=== PATIENT | male | born 1965 | race Caucasian/White ===

== ENCOUNTER → 2016-10-31 | Outpatient (CLI) | payer SELFPAY | END | disposition home or self-care (01) | LOC: PTH.S 21:10 | DX: F15.93 Other stimulant use, unspecified with withdrawal (principal) ==

== ENCOUNTER 2016-11-04 09:30 | Emergency (ER) | payer SELFPAY ==
--- NOTE | 2016-11-05 12:52 | ER ---
ADMIT: 11/04/2016 RM/LOC: ER [facility] MR#: [id number] [address] [place], [place] [address] JSOE MURGUIA [address] [place] [id number] Emergency Room Report SEX: M AGE: 51 : 1965 DATE: 11/04/2016 The patient is a 51-year-old, presents to emergency room for removal of sutures placed in his left upper cheek by Marely Enriquez a week ago. He is demanding to get them removed, pacing the floor. No physical examination. I went outside, looked at the sutures, they are due for removal. One of them already fell off. I used a suture removal kit and removed the other 4 sutures without any problems. The patient refused to wait for discharge instructions. DIAGNOSIS: Suture removal, left face. LORI Gibson / Mynor Navarro MD / ana JOB #: [id number] CC: Mynor Navarro MD, Attending Physician UNKNOWN, Family Physician
== END 2016-11-04 15:10 | disposition home or self-care (01) ==
LOC: ER 09:30
DX: S01.412D Laceration without foreign body of left cheek and temporomandibular area, subsequent encounter (principal); F17.210 Nicotine dependence, cigarettes, uncomplicated

== ENCOUNTER 2016-11-11 14:13 | Inpatient (IN) | payer OTHER ==
[~2016-11-11] VITALS: Ht 180.3 cm; Wt 96.6 kg
--- NOTE | ~2016-11-11 | TXPLANREV ---
"PATIENT: JOSE MURGUIA | | [facility] UNIT #: [id number] | [address] AGE/SEX: 51 M : 67 | [address] | [place] [phone] ADMIT/REG DATE: 11/11/16 | ROOM: [facility] LOC: ADTC | ADTC | Treatment Plan/Staffing Review Date: 12/02/16 Treatment plan was reviewed and determined appropriate as written: yes, client is to work on relapse packet and realized to call ex puts him on emotional rollercoaster so plans to not call her. He is calling sponsor. Treatment plan was reviewed and the following changes/addition/deletions are necessary: Discharge plans were reviewed and determined appropriate as previously documented: Client is to discharge 12/09/16, is being referred to [facility], can stay at [facility] until opening at [facility]. He is to call sponsor daily and meetings 4-7x/week. Until gets into [facility] can see Odessa Bender for aftercare starting on 12/14/16 at 3pm. Discharge plans were reviewed and determined to be as follows: Other pertinent issues discussed during this staffing review include: Client has made good progress, was very hooked into relationship, and now can see that talking to her puts him on emotional rollercoaster. He also sees how he wasn't honest at [facility] before as never told them that his GF drinks/uses and avoided telling them when he was hurting. He interviewed with [facility] and is on list, owned his dishonesty about GF. Staff Present: Jeniffer Weinberg, Odessa Bender, Elizabeth Cuello, London Laughlin, Nilda Herbert PRIMARY COUNSELOR: Sepideh Yu Client Signature Counselor Signature Date Time "
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
--- NOTE | ~2016-11-11 | RESCARESUM ---
PATIENT: JOSE MURGUIA | | [facility] UNIT #: [id number] | [address] AGE/SEX: 51 M : 67 | [address] | [place] [id number] ADMIT/REG DATE: 11/11/16 | ROOM: [facility] LOC: ADTC | ADTC | Summary of Residential Care Primary Counselor: Sepideh 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 Discharge Diagnosis: unchanged Goals Achieved: Client successfully completed residential treatment. He did well on Step 1 owning his powerlessness over alcohol/drugs. He did have phone contact with his daughter and girlfriend/ex, was obsessive on this girlfriend/ex to the point it interferred in his treatment, he was on emotional rollercoaster the first 2 weeks. His last 2 weeks he came to some acceptance that the relationship is toxic as she still uses/drinks, but still has difficulty letting go. Client can see that he kept secrets about his GF while at [facility], wasn't honest about her use cause new NA/counselors wouldn't support him living with her if she is using, plus he was hurting due to her hurtful behaviors and he kept it to himself. Client did do some Trauma work on his poor relationships with father/step-father. He does respond well to EMDR and it would benefit him to do this on his dependency in a toxic relationship. He did work on Relapse Prevention and could also do EMDR on triggers with his addiction aftercare. Client attended Family program alone but did have family session with his daughter on phone. Client did read Letting Go of Need to Control and found it very helpful. Needs to learn how to focus on self/sponsor/daughter instead of toxic relationship. Continued Obstacles to Sobriety/Relapse Issues: anger/hurt/stuffing feelings, not asking for help, lie or not tell whole story, boredom, not calling/opening up to sponsor/counselor, stress/worry, put up front "I'm fine", worry about others instead of self, lack of daily schedule, slack on meetings and this toxic addictive relationship he has with GF/ex. Family Issues Addressed: Client did attend the Family Educational program and did have phone session with daughter which seemed beneficial. x Individual Therapy x Group Therapy x Educational Series on Substance Abuse Parents/Significant Others Attended Family Program Acute Medical Problems During the Course of Treatment Transferred to Hospital During the Course of Treatment PATIENT: JOSE MURGUIA | | [facility] UNIT #: [id number] | [address] [place] [address] AGE/SEX: 51 M : 67 | [address] | [place] [address] ADMIT/REG DATE: 11/11/16 | ROOM: [facility] LOC: ADT | [facility] | Summary of Residential Care x Accepting of Substance Abuse Problem Non-accepting of Substance Abuse Problem Required Psychological or Psychiatric Consultation During the Course of Treatment Completed AA Step # 1 During This Level of Care Significant Incidences During Treatment: Clients emotions were like rollercoaster as he focussed/obsessed on his GF/ex and as he had calls with her. He did gain insight into how it is toxic for him and how he kept secrets when at [facility] before due to not wanting to leave this relationship. He still has difficulty letting go and states he wants to be friends with her. Reason For Discharge: x Completed Residential TX Goals and Ready For Next Level of Care Left Tx Against Medical Advice/Treatment Goals Not Complete Completed Residential Tx Goals But Refusing Continuing Care Recommendations Discharged Due to Noncompliance/Treatment Goals not Completed Discharged Earlier Than Planned Due to: Continuing Care Plan/Recommendations: Intensive Partial Care x Sponsor Partial Care x AA Meetings/NA Meetings Outpatient Co-dependency Services Therapeutic Community x [facility] [facility] Marriage Counseling Other Specific Continuing Care Plan: Client is being referred to the [facility] and he is to admit to their program upon discharge from our residential program. Client has a sponsor he has called and is to keep contact 4-7x/week, and is to attend AA/NA/BUSINESS STRATEGIST 4+x/week. PRIMARY COUNSELOR: Sepideh Yu
--- NOTE | ~2016-11-11 | INDIVTXPL2 ---
"PATIENT: JOSE MURGUIA | | [facility] UNIT #: [id number] | [address] AGE/SEX: 51 M : 67 | [address] | [place] [phone] ADMIT/REG DATE: 11/11/16 | ROOM: [facility] LOC: ADTC | ADTC | Individualized Treatment Plan DATE: 11/22/16 Problem Statement/Issue Identified:Client is experiencing family & significant other discord, client has guilt/grief and acts out controlling/anger which feeds his addiction. Goal: Client is to attend Family Educational program, read Letting Go of Control, and build better communication/making ammends to self and others. Objectives/Activities to achieve goal: 1. Client is to attend Family Education on 11/25 and 11/29 2pm-end. Participate in class. Due Date: 11/29/16 Complete: Incomplete: 2. Client is to write ammends letter to Self, daughter and Jesusita. Owning how he hurt self and others, and his plan of recovery. Share with counselor and family group. Due Date: 11/29 or Complete: Incomplete: 3. Client is to read Letting go of Need to Control to help understand clingy/control behavior he calls love. Share what he learns with counselor. Due Date: 12/06/16 Complete: Incomplete: Client Signature Date Counselor Signaure: Date Outcome/Measurement of Progress Towards Goal: Counselor Signature: Date "
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
--- NOTE | ~2016-11-11 | INDIVTXPL2 ---
"PATIENT: JOSE MURGUIA | | [facility] UNIT #: [id number] | [address] AGE/SEX: 51 M : 67 | [address] | [place] [phone] ADMIT/REG DATE: 11/11/16 | ROOM: [facility] LOC: ADTC | ADTC | Individualized Treatment Plan DATE: 11/18/16 Problem Statement/Issue Identified: Client continues to use alcohol & drugs despite ongoing negative consequences. Goal: Client is to learn about alcoholism/drug addiction, identifying consequences of his use and learn how to work a stronger AA/NA program. Objectives/Activities to achieve goal: 1. Client is to fill out Getting Started and Step 1 packets, identifying 10-15 ways his addiction went against his values and hurt loved ones. Client is to share with counselor and selected pages in group. Due Date: 11/30/16 Complete: Incomplete: 2. Client is to get and call sponsor 2x/week while in treatment. Share progress with counselor. Due Date: ongoing Complete: Incomplete: 3. Client is to attend and talk at AA/NA weekly, attend optional meetings if willing, read [phone] & [phone] and 83-84. Can bring up topic of How to forgive/love self at meeting or group. Client is to report progress to counselor. Due Date: ongoing Complete: Incomplete: Client Signature Date Counselor Signaure: Date Outcome/Measurement of Progress Towards Goal: Counselor Signature: Date "
--- NOTE | ~2016-11-11 | TXPLANREV ---
"PATIENT: JOSE MURGUIA | | [facility] UNIT #: [id number] | [address] AGE/SEX: 51 M : 67 | [address] | [place] [phone] ADMIT/REG DATE: 11/11/16 | ROOM: [facility] LOC: ADTC | ADTC | Treatment Plan/Staffing Review Date: 11/25/16 Treatment plan was reviewed and determined appropriate as written: yes, client is working on Letting Go of Need to Control booklet and feelings letters. Treatment plan was reviewed and the following changes/addition/deletions are necessary: Discharge plans were reviewed and determined appropriate as previously documented: Discharge plans were reviewed and determined to be as follows: Client is to discharge on 12/09/16, is being referred to the [facility] ([facility] if a waiting period). Also is to attend AA/NA/FLUME WORKER 3-7x/week and call sponsor daily. Other pertinent issues discussed during this staffing review include: Client asked to talk to many counselors/staff the first 2 weeks and often was thinking about leaving. He has stayed and suggested to be in or be out, show investement in staying in treatment. Client is showing improvement now, doctor did up his medication last week to help him with his depression and mind-racing. Staff Present: Jeniffer Weinberg, Nilda Herbert, Odessa Bender, Elizabeth Cuello, London Laughlin PRIMARY COUNSELOR: Sepideh Yu Client Signature Counselor Signature Date Time "
--- NOTE | ~2016-11-11 | INDIVTXPL2 ---
"PATIENT: JOSE MURGUIA | | [facility] UNIT #: [id number] | [address] AGE/SEX: 51 M : 67 | [address] | [place] [phone] ADMIT/REG DATE: 11/11/16 | ROOM: [facility] LOC: ADTC | ADTC | Individualized Treatment Plan DATE: 12/07/16 Problem Statement/Issue Identified: Client relapsed/returned to alcohol and drug usage after previous treatment attempts. Goal: Client is to learn about relapse prevention, identifying his top relapse triggers and how to cope with them to succeed in recovery. Objectives/Activities to achieve goal: 1. Client is to attend Relapse Prevention class every Tuesday 3-4pm and participate. See class notes. Due Date: 12/07/16 Complete: Incomplete: 2. Client is to fill out Relapse Prevention packet, identifying top 5-10 relapse triggers and how to cope with them. Share with counselor and share selected pages with group. Due Date: 12/09/16 Complete: Incomplete: 3. Client may do EMDR on triggers if time. See counselor notes. Due Date: 12/09/16 Complete: Incomplete: Client Signature Date Counselor Signaure: Date Outcome/Measurement of Progress Towards Goal: Counselor Signature: Date "
--- NOTE | 2016-11-11 15:25 | NUR ---
ADMISSION NOTE Client is a 51 y/o single male, referred to treatment by the [facility] and [facility] by [facility] staff. Client had been in the [facility] for 5 days. Client states that he has been homeless in [place]. Client states NKMA and brings no medications with him today. Client states DOC is meth, last used November 05 in the amount of 0.25 gram. Client also states occassional marijuana and alcohol use. Client is hoping for family group participation from his significant other and his daughter. Rights/Responsibilities: Copy given and explained to client. Signed and accepted by client. Client oriented to physical lay out of the ADTC unit, given Big Book and admission packet. A Herbie was assigned.
--- NOTE | 2016-11-11 16:35 | NUR ---
IS 1 hr/ Did meet with client and got acquainted, he shared how he fears he has lost everything. He lost his good paying job, he left the [facility] after 6 months even though they suggested he stay. He moved in with GF out of town even though he had no drivers license and stopped going to meetings. He talked with GF about getting 6 pack and did, relapsed back into meth within short time and she kicked him out. He did get back to tx and was only out there in his addiction 2 months, he said it progressed quickly. He was praised for coming back now instead of staying out there using, he did say [facility] counselor said they likely will take him back. Counselor pointed at this and tried to encourage him with this and that he must of been doing well there that they would say that. He also was pointed to how most everyone in AA/NA have similar story of how much they lost, or of relapses and they offer him hope that if he works program fully this time he can do better than before. Client and counselor went over his Initial Treatment plan. He is to fill out GS packet but isn't done with the admission paperwork yet. He has already met with the doctor and nurse. He shared about his great sponsor so counselor said get the # and will let him call sponsor and have him as visitor this weekend. Client was oriented to counseling.
--- NOTE | 2016-11-11 19:33 | NUR ---
counselor note: Client came to talk to me as he is feeling very down on himself. He feels he has lost everything. He said he felt suicidal before coming here and they took him to [facility] but he is not feeling suicidal now. I told him he will feel better as time goes on. He was going to see if his counselor was out of group yet.
--- NOTE | 2016-11-11 20:00 | NUR ---
IS .25 hr/ Client did stop by this counselors office, saying he isn't done with paperwork yet but did get # of sponsor, let him call the sponsor and did get to talk to him, told sponsor he relapsed and is in tx. That sponsor can come and visit him this weekend. Client thanked counselor, looked wore-out, and counselor said the first day is wearing but it will get better each day. He agreed and thanked counselor for letting him make a call. He did say he has talked to 2 other counselors today for support (he knows the staff from his last treatment here 8 months ago).
--- NOTE | 2016-11-11 21:07 | NUR ---
FAMILY CONTACT- attempted to call both #'s client gave for his S.O. and daughter, neither answered, did leave message for S.O. to call back
--- NOTE | 2016-11-11 23:58 | NUR ---
Tech Note: Client attended Guided Meditation and A.A.Meeting. SE: Getting into treatment
--- NOTE | 2016-11-12 04:27 | NUR ---
Eduction: 1 Hour. Client attended "Unresolved Anger" video & discussion presented by staff.
--- NOTE | 2016-11-12 11:30 | NUR ---
GROUP 1.5 HR/ 11:1 Clients all reviewed rules and heard new member share about himself. This client was attentive and gave some feedback. He states he doesn't want to be like his dad who was alcoholic, did forgive him, but has unfinished business/unanswered questions. He was ORIENTED TO GROUP RULES and shared alot about himself, had over 6 months sober as was at [facility] 6 months but relapsed shortly after due to not going to meetings, had put off getting sponsor til last 3 weeks of being at [facility]. He shared lost everything, got bad that it was affecting job, but worst was missed daughters wedding.
--- NOTE | 2016-11-12 13:00 | NUR ---
PEER REVIEWS 1.5 HRS: Clt participated in peer review process and was able to give open and honest feedback to those receiving a review.
--- NOTE | 2016-11-12 16:30 | NUR ---
Tech Note: Client participated in group walk for exercise and watched "Recovery Issues Part 3" for afternoon video. Client is working on Getting Started.
--- NOTE | 2016-11-12 22:45 | NUR ---
TECH NOTE: Client participated in reading guidelines and watched tv/movies. attended offsite optional AA meeting SE: all day
--- NOTE | 2016-11-13 04:09 | NUR ---
Bed Note: Clt lay motionless in bed with eyes closed showing no distress at all bed checks.
--- NOTE | 2016-11-13 16:01 | NUR ---
Tech Note: Client attended NA Panel and is working on Feelings Letters.
--- NOTE | 2016-11-13 16:43 | NUR ---
Tech Note: Client has come by tech station several times, on this day, asking my opinion of "how bad he has messed up with his girlfriend". Clt wrote some of his feelings down in a letter and asked to share with techs. Also overheard clt sharing the letter with a female peer (JamesA.). Some time later in day clt stated that he wanted to leave. He spoke to the health information manager counselor (Varun) and to tech (Ananda) after call. As of now aubrey is staying and will try to call his sponsor and possibly arrange a visit for Tuesday. Client agreed to talk to peers about feelings and staff will help. He will start praying again and try to get through the next few days by taking it 5 minutes at a time if that's what it takes.
--- NOTE | 2016-11-13 20:14 | NUR ---
Tech note: Cldeshawn played a game for recreation and attended offsite AA mtg. Clt was late for rec having threatened to leave tx. Clt was angry saying why should he stay in tx and said he didn't want to talk with anybody. He had a female peer attempt calling s/o for him. When techs found out about this clts redirected. Clt talked with male peer and apoligized to tech after comm mtg in which peers complimented him for staying in tx. On- Call counselor informed. SE was supper
--- NOTE | 2016-11-14 04:35 | NUR ---
Bed Note: Clt lay motionless in bed with eyes closed showing no distress at all bed checks.
--- NOTE | 2016-11-14 15:45 | NUR ---
Tech Note: Client participated in Big Book Study. Client stated that he is working on, "How to Get Started in Treatment."
--- NOTE | 2016-11-14 22:39 | NUR ---
Tech Note: Clt attended AA panel, optional DENTAL LABORATORY SUPERVISOR mtg and watched movies. Clt stated having a much better day today. SE was sponsor visit, DENTAL LABORATORY SUPERVISOR mtg and AA panel
--- NOTE | 2016-11-15 04:37 | NUR ---
Bed Note: Clt lay motionless in bed with eyes closed showing no distress at all bed checks. Clt came out of room at 2330 hrs for a meditation CD.
--- NOTE | 2016-11-15 10:14 | NUR ---
Tech notes: Client is working on Getting started
--- NOTE | 2016-11-15 12:00 | NUR ---
Group 1.5 hr/10:1 Clients heard peers share packets, this client was attentive.
--- NOTE | 2016-11-15 13:30 | NUR ---
Education: Client attended education by Shalonda on Infection prevention.
--- NOTE | 2016-11-15 18:11 | NUR ---
Education: 1 Hour. Client attended "Adult Children of Alcoholics" lecture presented by staff.
--- NOTE | 2016-11-15 23:19 | NUR ---
tech note: Client played a game for recreation & attended onsite NA meeting. Client told tech that a female peer is "too clingy" and mentioned she wants to be "friends with benefits" after they leave treatment. Client was tearful in the client meeting and continued talking for quite some time. SE: NA meeting.
--- NOTE | 2016-11-16 04:31 | NUR ---
BED NOTE: Client was in bed, motionless with eyes closed all three bed checks.
--- NOTE | 2016-11-16 11:29 | NUR ---
A.M. 1.5 hr res group/ratio 1:10/ Assignments shared were a how to get started and a letter to self. Discussion focused on resenting self, forgivness, feeling afraid and out of place and believing in self. This client participated and shared his how to get started. He has resentments towards self for not being in his kids life and now 2 are in penitentiary. He heard he needs to forgive self.
--- NOTE | 2016-11-16 16:00 | NUR ---
Relapse Prevention, 1.0 hours, Client attended and actively participated in relapse prevention education which focused on internal and external triggers.
--- NOTE | 2016-11-16 16:35 | NUR ---
Tech Note: Client participated in Nutritional Services presentation and is working on the Big Book.
--- NOTE | 2016-11-16 17:00 | NUR ---
IS 1 hr/ Counselor met with client who had complained of stomach problems. As we talked he is obsession on his S.O. who broke up with him, he wants to get her back, he asked to share letter he wrote, but first told how depressed he is, doesn't know if life is worth this. Counselor questioned him on being suicidal, he has struggled with thoughts but no plan, he just is full of hurt and pain, hasn't hurt this bad before he stated. Client was questioned of nif suicidal and he said no, asked if wanted to go to [facility] to get stabilized on meds for depression and he said he hates it there, he would leave if we take him there. HE stated you aren't sending me to [facility] and counselor said if he needs help because is suicidal they would help him and get him back here after stablized. He said he just wants us to help him with it, a better medication or something. So counselor had him fill out Self-Care form on his bad stomach and his depressed feelings for doctor staffing. Counselor asked him to share what was good his last 6 months clean/sober that he had and he shared several things. Did do EMDR with him as he shared good memories from being at [facility], how he did feel good about his life then.He did state this helped him feel better, then he shared letter. He appeared to write last 1/2 in broken incomplete sentences so suggested he wait a week and to add more to it, he admits he scared her but left that out of letter and needs to own it. He was given ideas of how to change his obsessive thoughts to focus on other things he can feel good about, stay in today, focus on gratitudes/strengths and is to write them down-20 of each to help change his negative focus. When asked if he prays he said he believes and he prays, later he yelled that God caused bad things to happen, loved ones to , etc and counselor confronted that thinking as a negative concept of God, and bad things happen to everyone in this world, that is life. Client asked about how to do list so gave him some ideas. Counselor did talk with nurse following session that client may need doctor to help client with intense depression.
--- NOTE | 2016-11-16 22:42 | NUR ---
Education: 1 hour lecture given by counselor on co-dependency
--- NOTE | 2016-11-16 22:48 | NUR ---
Aircuity note: clients played [employer] for rec, participated in guided meditation and attended AA meeting. client came to tech station before AA meeting and wanted to know if he was going to see doctor because he had sour stomach. He wanted to go to his room but we told him the rules for going to your room and he started cussing. He wasn't happy with his counselor and wanted to change. We explained to him we can only give him PRN's and he didn't have symptoms to go to room. He went to meeting and later apologized to tech for getting angry. He was told his doctor would be here in a.m. SE:TONEY
--- NOTE | 2016-11-17 04:35 | NUR ---
bed note: client was in bed with eyes closed and motionless at all bed checks.
--- NOTE | 2016-11-17 09:51 | NUR ---
Tech notes: Client is working on [employer]
--- NOTE | 2016-11-17 09:58 | NUR ---
Recovery 101 1 hr/ Clients all were asked to share what they worked on in treatment or past treatments that really helped them and/or their experience with working an AA/NA program of recovery-what went well. This client was attentive and is learning how to embrace the good, scared to not have chaos, and his last treatment and [facility] did learn how to feel feelings.
--- NOTE | 2016-11-17 11:30 | NUR ---
GROUP 1.5 HRS. 1:12 Clients participated in orienting new peer to purpose and rules of group. Discussion included healthy coping skills to deal with stress and feelings after this client asked for help as he is so emotional. He was given feedback about obsessing on girlfriend and past behaviors as opposed to looking at what he needs to work on today. He was encouraged to journal feelings and process with primary counselor. Peer processed from his step 1 assignment identifying how he betrayed his values in his addiction.
--- NOTE | 2016-11-17 13:14 | NUR ---
Education note: Client attended educational speaker Madhu Judge
--- NOTE | 2016-11-17 17:30 | NUR ---
SPIRITUAL EDUCATION 1 HR. Today we used music to invoke discussion, symbolize how it can be either positive spirituality or negative spirituality, and discussed the feelings. We used one song that depicted addiction, one that talked about recovery, and since we are close to Mother's Day, one that depicted addiction in parents and forgiveness.
--- NOTE | 2016-11-17 18:17 | NUR ---
Education: 1 Hour. Client attended "Boudaries" lecture given by staff.
--- NOTE | 2016-11-17 22:53 | NUR ---
Tech Note: Client played a game for rec, and attended The on unit N.A.Meeting. SE: Walk
--- NOTE | 2016-11-18 04:29 | NUR ---
Bed Note: Client was in bed with eyes closed and motionless at all bed checks.
--- NOTE | 2016-11-18 12:40 | NUR ---
Group 1.5 Hr Ratio 1:9/Topics today were a collage, two step ones, a getting startred and feelings letters. Client shared how he could relate to what clients were sharing from assignments and issues.
--- NOTE | 2016-11-18 14:30 | NUR ---
FAMILY SESSION .5 HR/ dID CALL his daughter and did talk to her, with client present. She does like him when he is clean/sober, did have good dominga, did share how hurt she was that dad wasn't there for her wedding and he owned his feeling so sad, hurt and ashamed for doing that. She did say she would come to Tuesday family day, then found out after hung up that it would be that evening. She did come to it 8 months ago when he was here. Did encourage her to make a also. She seemed glad to come for at least one, wasn't sure she could do both.
--- NOTE | 2016-11-18 15:00 | NUR ---
IS .5 hr/ Client and counselor went over his GS, he is to do step 1 now, starting with page 11 as needs to write feelings letter by Tuesday to his daughter. Client was tearful still about his S.O. and wondering if he should call on how he is going to get his stuff, suggested he write a brief letter to say this. Plan for his daughter to come to family day.
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
--- NOTE | 2016-11-18 15:57 | NUR ---
step education 1 hr/ Focus was on step 3 of the 12 steps Made a decision to turn our will and lives over to God. Each person were given questions to answer on paper and then to share and discuss. This client participated.
--- NOTE | 2016-11-18 18:15 | NUR ---
Education 1HR: Clt watched video called "Predator part 1" by Cirilo Liz with staff present.
--- NOTE | 2016-11-18 23:04 | NUR ---
Tech Note: Client took a walk for rec and attended the A.A.Meeting. SE: Talk with Daughter
--- NOTE | 2016-11-18 23:22 | NUR ---
1:00 pm. Education Note: Client watched video "Inside the Addictive Personality"
--- NOTE | 2016-11-19 04:07 | NUR ---
Bed Note: Client was in bed and motionless at all bed checks.
--- NOTE | 2016-11-19 11:30 | NUR ---
Group 1.5 hr/ 11:1 Clients all involved in discussions about addiction and recovery. THis client was very involved and gave good feedback, related well.
--- NOTE | 2016-11-19 14:31 | NUR ---
PEER REVIEWS 1.5 HRS: Clt participated in peer review process and was able to give open and honest feedback to those receiving a review.
--- NOTE | 2016-11-19 15:38 | NUR ---
Tech Note: Client participated in group walk and watched "Marijuana" by Cirilo Liz. Assignment being worked on is Step 1 and Feelings Letters.
--- NOTE | 2016-11-19 23:11 | NUR ---
Tech note: Client was first on the phone list, when his time was up he was asked to get off several times and he ingnored staff. He blew up after he hung up. saying he was leaving, blaming staff. He packed his things and called his ex several times, he decided to stay.
--- NOTE | 2016-11-20 03:58 | NUR ---
Bed note: Client was in bed with eyes closed and no distress at all bed checks
--- NOTE | 2016-11-20 16:46 | NUR ---
Tech Note: Client went to A.A.Meeting at [address]. Client is working on Step 1 and FL's
--- NOTE | 2016-11-20 21:56 | NUR ---
Tech note: Client's were just starting to grill around 6pm so we did not have rec this evening. Client walked to an offsite AA meeting, played games and watched movies. He had a posative attitude all evening. SE; family
--- NOTE | 2016-11-21 04:44 | NUR ---
tech note: client was motionless in no distress at all bed checks.
--- NOTE | 2016-11-21 17:24 | NUR ---
Tech Note: Client participated in Big Book study. Client attended synagogue. Client stated that he is working on Step One and writing feelings letters. Client spoke to his former significant other on the phone.
--- NOTE | 2016-11-21 23:19 | NUR ---
tech note: Client participated in community clean & attended SCREEN EXAMINER meeting. Client was redirected by tech when he didn't end his phone call when his time was up. SE: [facility].
--- NOTE | 2016-11-22 04:23 | NUR ---
tech note: client was motionless in no distress at all bed checks.
--- NOTE | 2016-11-22 11:30 | NUR ---
Experiential Group 1.5 hr/ Clients all participated in looking at family dynamics and feelings through sculpturing and participated with feedback, relating and/or role-playing. This client was attentive and quiet.
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
--- NOTE | 2016-11-22 17:34 | NUR ---
Tech Note: Client went for an outdoor walk in the afternoon. Client stated that he is working on Step One and writing feelings letters.
--- NOTE | 2016-11-22 20:46 | NUR ---
Education 1 HR: Clt listened to lecture given by counselor on communication.
--- NOTE | 2016-11-22 23:03 | NUR ---
Client played a game for rec and attended on site N.A.Meeting SE: Meeting with counselor
--- NOTE | 2016-11-23 04:57 | NUR ---
Bed Note: Client was in bed and motionless at all bed checks
--- NOTE | 2016-11-23 12:30 | NUR ---
A.M. 1.5 hr group/ Assignments shared were step 1, feelings letters, timeline to music, and this client asked for help on how to forgive self. He got teary eyed as he listened to feedback. He recieved feedback from peers who seemed sincere in caring.
--- NOTE | 2016-11-23 15:09 | NUR ---
Tech Note: Client joined group for afternoon walk, listened to speaker from [facility] and is working on Step 1, and Feelings Letter to self.
--- NOTE | 2016-11-23 15:52 | NUR ---
Tech Note: Client attended Relapse Prevention education with Nilda.
--- NOTE | 2016-11-23 19:50 | NUR ---
Education: 1 hour lecture on STD/AID/HIV giortega by [facility].
--- NOTE | 2016-11-23 22:24 | NUR ---
Tech note : Client worked on My-Apps and get well cards. Client participated in guided meditation and went to an onsite AA meeting. Client told tech's he had alot of anxiety and stress going on. Staff told him to talkt to his counselor about it.
--- NOTE | 2016-11-24 04:14 | NUR ---
Bed note: Client was in bed with eyes closed and no distress at all bed checks. He was up at 3:30 and stated that he could not go back to sleep so he asked for cd player and [employer] music
--- NOTE | 2016-11-24 11:11 | NUR ---
Tech Note: Client is working on Letting Go of Need to Control and Amends to Self.
--- NOTE | 2016-11-24 12:10 | NUR ---
AM GROUP 13:07/11.5 HR: Client and peers heard multiple clients process assignments and issues. Most did offer feedback, asked clarifying questions and shared from their own experiences. This client did share and process PAGES 10 & 11 from his Step One. He did a good job with these in that he provided good examples of values compromised and people he has hurt. Client does get a little over-dramatic at times, but many related to his examples.
--- NOTE | 2016-11-24 13:18 | NUR ---
Tech Note: Client walked in the hallways for afternoon exercise.
--- NOTE | 2016-11-24 13:22 | NUR ---
Education One Hour: Client heard from members of the recovery community, who shared their experience, strength and hope.
--- NOTE | 2016-11-24 17:27 | NUR ---
SPIRITUAL EDUCATION 1 HR. Topics today were orienting newcomers and then broke into groups and did presentations on their sections from TOWARDS SPIRITUALITY.
--- NOTE | 2016-11-24 18:45 | NUR ---
Education: 1 hour lecture given by counselor on "Disease concept".
--- NOTE | 2016-11-24 22:20 | NUR ---
Tech note: Client played catch phrase for rec and attended an onsite NA meeting. He was upset this evening and went and talked with a counselor so he was late to rec. SE: MARIELOS
--- NOTE | 2016-11-25 04:59 | NUR ---
Bed note: Client was in bed with eyes closed and no distress at all bed checks.
--- NOTE | 2016-11-25 10:38 | NUR ---
Tech Note; Client participated in light stretching for morning exercise. Client stated that he is working on making amends to his daughter.
--- NOTE | 2016-11-25 11:30 | NUR ---
AM GRP 1.5 HRS, Ratio 1:12/ Clt participated in grp discussion on various topics, including having fun in recovery, how addiction hurts everyone around them, and what to do just to stay in recovery. This clt participated, and stated he knows for his recovery, he needs to let go of some past issues from his childhood and even adult pino, when his dad .
--- NOTE | 2016-11-25 15:55 | NUR ---
Step Education 1 hr/Focus was on step 4 making a searching and fearless moral inventory of ourselves. Handed out some questions each person answered on paper and then we discussed. This person participated and shared an old belief he has is that men dont cry.
--- NOTE | 2016-11-25 16:19 | NUR ---
Education 1 Hour: Client heard from two members of the recovery community, who shared their experience strength and hope.
--- NOTE | 2016-11-25 20:23 | NUR ---
Education: 1 Hour. Client attended Karl Knowles "Unhealthy Families" video.
--- NOTE | 2016-11-25 20:59 | NUR ---
IS 1 hr/ Client and counselor went over letter to child, discussed his letting go of relationship better and he read the Letting Go of Need to Control and owned how he could be controlling/scarey-threatening/manipulative when coming down. He did EMDR relaxation technique with counselor and is to practice it. He said he didn't sleep well night before last and thought sleep med may need to be increased but counselor did EMDR and client is to practice this. Also was told no one new in recovery has perfect sleep habits, takes months and sometimes years.
--- NOTE | 2016-11-25 22:57 | NUR ---
Client went on a walk for rec, participated in guided meditation, and attended the on unit A.A.Meeting. SE:A.A./Counselor session
--- NOTE | 2016-11-26 05:34 | NUR ---
tech note: client was motionless in no distress at all bed checks.
--- NOTE | 2016-11-26 11:48 | NUR ---
Group 1.5 Hr Ratio 1:11/Topics today were two Getting started packets, feelings letters and a letter to self. Client shared a letter he wrote to his self and thinks he has more control issues than he looked at in the past.
--- NOTE | 2016-11-26 14:42 | NUR ---
Tech Note: Client joined our group walk for exercise. Watched video titled "Sound of Silence" and is working on Anger Management and Feelings Letters.
--- NOTE | 2016-11-26 15:45 | NUR ---
PEER REVIEWS 1.25 HRS: Clt participated in peer reviews and took a risk to give open and honest feedback to those receiving a review.
--- NOTE | 2016-11-26 20:27 | NUR ---
TECH NOTE: Client participated in reading of guidelines, watched TV/movies and attended optional offsite AA meeting SE: receiving items from friend
--- NOTE | 2016-11-27 04:31 | NUR ---
BED NOTE: Client was in bed, motionless with eyes closed all bed checks.
--- NOTE | 2016-11-27 16:15 | NUR ---
Tech Note: Client is working on Feelings Letters and Anger Management.
--- NOTE | 2016-11-27 20:20 | NUR ---
Tech note: Clt played a game for recreation and attended offsite AA mtg. clt watched tv and used phone. SE was NA panel.
--- NOTE | 2016-11-28 04:24 | NUR ---
BED NOTE: Client was in bed motionless with eyes closed all three bed checks.
--- NOTE | 2016-11-28 15:44 | NUR ---
Tech Note: Client participated in Big Book study. Client stated that he is working on writing feelings letters. Client attended scientology and received a visitor.
--- NOTE | 2016-11-28 22:57 | NUR ---
Tech Note: Client attended the A.A.Panel with Jitendra Damon Client also attended the INDUSTRIAL SAFETY AND HEALTH TECHNICIAN meeting SE: Visitation
--- NOTE | 2016-11-29 04:36 | NUR ---
Bed Note: Client was laying in bed and motionless at all bed checks.
--- NOTE | 2016-11-29 09:43 | NUR ---
Tech note: Client is working on Fl's.
--- NOTE | 2016-11-29 11:30 | NUR ---
PEER REVIEW 1.5 hr/ Clients had 4 peer reviews and this client gave good feedback.
--- NOTE | 2016-11-29 12:54 | NUR ---
Education Note: Clients attended speaker for education Kit J.
--- NOTE | 2016-11-29 18:18 | NUR ---
Education: 1 Hour. Client attended "Feelings" lecture presented by staff.
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
--- NOTE | 2016-11-29 23:06 | NUR ---
tech note: client attended Family Session. Client was redirected to watch his remarks before the client meeting started. SE: Family.
--- NOTE | 2016-11-30 04:45 | NUR ---
tech note: client was motionless in no distress at all bed checks.
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
--- NOTE | 2016-11-30 15:50 | NUR ---
Relapse Prevention, 1.0 hours, Client attended and actively participated in relapse prevention education which focused on compulsive behaviors and relapse.
--- NOTE | 2016-11-30 16:07 | NUR ---
Tech Note: Client watched Part 2 of Predator by Cirilo Liz and had Relapse Prevention for 3:00 education. Assignment being worked on: Feelings Letters.
--- NOTE | 2016-11-30 16:22 | NUR ---
Education Note: Client attended Relapse Prevention presented by counselor Judith.
--- NOTE | 2016-11-30 20:17 | NUR ---
Education: 1 hour lecture given by counselor on relapse.
--- NOTE | 2016-11-30 20:23 | NUR ---
tech note: Client went for walk for rec, participated in guided meditation and attended AA meeting
--- NOTE | 2016-11-30 23:29 | NUR ---
Tech Note: Client went on a walk for rec and attended the on unit A.A.Meeting. Client participated in Guided Meditation at 1930. SE: [facility]
--- NOTE | 2016-12-01 04:54 | NUR ---
Bed note: client was in bed with eyes closed and no distress at all bed checks.
--- NOTE | 2016-12-01 10:18 | NUR ---
Tech notes: Client is working on Fl's and mtg with meg
--- NOTE | 2016-12-01 13:46 | NUR ---
Educational note: Client watched a video for education.
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
--- NOTE | 2016-12-01 15:48 | NUR ---
FAMILY SESSION ON PHONE .5 HR/ Client and counselor called clients daughter, he did share his feelings letter with her over the phone and shed tears. Did discuss his aftercare with her and explained what was missing his last time at [facility], how his plan and insights is different now. She was very loving and positive, agreed with him that his addiction was hurtful. They did mention that the brother has resentments as hates liers and so maybe with time and client making ammends this will open up door with him.
--- NOTE | 2016-12-01 17:19 | NUR ---
SPIRITUaL EDUCATION 1 HR. Clients were oriented to the group and learned difference between spirituality and gnosticist. We addressed GRATITUDE today with discussion, worksheet and activity.
--- NOTE | 2016-12-01 18:22 | NUR ---
Education: 1 Hour. Client attended "Self Esteem" lecture presented by staff.
--- NOTE | 2016-12-01 23:12 | NUR ---
tech note: client went on a walk for recreation & attended the onsite NA meeting. SE: EMDR & meeting with his counselor.
--- NOTE | 2016-12-02 05:09 | NUR ---
Bed Note: Clt lay motionless in bed with eyes closed showing no distress at all bed checks.
--- NOTE | 2016-12-02 11:10 | NUR ---
Tech Note: Client participated in Spiritual Enrichment. Client stated that he is working on, "Relapse Prevention."
--- NOTE | 2016-12-02 11:42 | NUR ---
Group 1.5 Hr Ratio 1:10/Topics today were two step ones, two Gettings started packets andtwo feelings letters. Client shared a feelings letter to his daughter and did not have a lot of feelings in the letter. Not sure if client has the desire to do what he needs to do to have a long lasting relationship with her.
--- NOTE | 2016-12-02 16:48 | NUR ---
FAMILY EDUCATION 3 HRS. Client attended alone and took part in the discussion on the disease concept. Client shared consequences of his addiction.
--- NOTE | 2016-12-02 19:14 | NUR ---
Education 1 Hour: Client heard a presentation on marijuana.
--- NOTE | 2016-12-02 22:10 | NUR ---
Education 1 HR: Clt watched video by Eleni "Devi Hernandez" with staff present.
--- NOTE | 2016-12-02 22:31 | NUR ---
Tech Note: Clt walked for recreation, attended GM and onsite AA mtg. SE was AA
--- NOTE | 2016-12-03 04:44 | NUR ---
Bed Note: Clt lay motionless in bed with eyes closed showing no distress at all bed checks.
--- NOTE | 2016-12-03 11:30 | NUR ---
Group 1.5 hr/ 11:1 Clients all heard peers share in discussion about when is it addiction with loss of control or being a "functional addict" as peer asked questions. Also they introduced self to newcomer. This client was attentive and gave great feedback.
--- NOTE | 2016-12-03 16:12 | NUR ---
PEER REVIEWS 1.25 HRS: Clt participated in peer reviews and took a risk to give open and honest feedback to those receiving a review. Client also had a peer review done and some of what he heard was that he needs to open up more, has control issues, is angry and defensive, snaps when he does not get his way, holds a lot of shame, needs to fogive himself, needs to take suggestions and apply them, and wants to be loved but has a wall up. Client shared he felt ashamed and hurt.
--- NOTE | 2016-12-03 16:12 | NUR ---
Tech Note: Client listened to speaker Hussein Lee and is working on Relapse Prevention.
--- NOTE | 2016-12-03 20:41 | NUR ---
Tech note: client watched TV and movies. Walked to optional offiste AA meeting. SE:peer review
--- NOTE | 2016-12-04 04:56 | NUR ---
Bed note: Client was in bed with eyes closed and no distress at all bed checks.
--- NOTE | 2016-12-04 16:48 | NUR ---
Tech Note: Client attended the A.A.Meeting at [address] [place] [address] and is working on Relapse Prevention
--- NOTE | 2016-12-04 22:47 | NUR ---
Tech note: Client walked around the park a few times for rec. Client walked to an off site AA meeting. SE: Talking with daughter
--- NOTE | 2016-12-05 05:00 | NUR ---
Bed note: client was in bed with eyes closed and no distress at all bed checks.
--- NOTE | 2016-12-05 15:28 | NUR ---
TECH NOTE: Client participated in big book study, attended latter-day, completed chores and watched tv/movies. Had visitors
--- NOTE | 2016-12-05 23:19 | NUR ---
tech note: Client participated in Community Clean. Client talked on the phone,played cards & watched tv. SE: visits & phone.
--- NOTE | 2016-12-06 04:44 | NUR ---
Bed note: client was in bed with eyes closed and no distress at all bed checks.
--- NOTE | 2016-12-06 14:57 | NUR ---
Tech note: Client is working on Addiction mamagment
--- NOTE | 2016-12-06 22:53 | NUR ---
Tech Note: Clt walked for recreation and attended onsite NA mtg. Watched movies and used phone. SE was NA mtg
--- NOTE | 2016-12-07 04:43 | NUR ---
Bed Note: Clt lay motionless in bed with eyes closed showing no distress at all bed checks.
--- NOTE | 2016-12-07 14:50 | NUR ---
IS 1.5 hr/ Client and counselor went over his Relapse Prevention packet, he did very well, very thorough and discussed how to prevent relapse. Client did share he still did call his ex 1x this weekend, he did call his sponsor also and feels really good about that relationship. He said he didn't react as negatively as he did the prior weekend to the ex, even though when he asked if they can work on their relationship she said it will be awhile cause she has alot of resentments. Counselor discussed that the prior weekend he had called 3x so to only call 1x is progress, also he seems more calm and focussed on recovery this time. Did have him put the shoe on other foot, if he was sponsoring someone that had a GF like his, what would he advise, and he stated that she uses and is toxic for him so needs to learn to let her go. He knows she is toxic, but he admits he is afraid of being alone and not ever having a GF to grow old with. Client was praised for being honest about all this time, not keeping secrets like he did when at [facility] the first time. Did write down 3 reasons this relationship is toxic and then wrote down what helps him with recovery. He says his Sponsor will have him at step-study every Tuesday so this is something client has never done before, plus he plans to do service work. Client and counselor did go over the Continued care Plan and we are still uncertain if [facility] will have opening for him but he heard they have 3 openings now. Client is happy he has lead on a job, saw someone at [facility] and [employer] and they said they are hiring. Did do EMDR to help client address the pull of making that call as he talked to sponsor and 2 peers but still called. Client pictured his sponsor and friends in recovery encouraging him to not call, plus his daughter and found this helpful. He also talked to daughter 2x this weekend and she gave him "air hug" over the phone and he was all smiles and grins about this. Is to share GS packet in group.
--- NOTE | 2016-12-07 15:35 | NUR ---
Tech Note: Client participated in light stretching for morning exercise and went on an outdoor walk in the afternoon. Client stated that he is working on, "Relapse Prevention."
--- NOTE | 2016-12-07 15:47 | NUR ---
Education 1 Hour: Client watched the video, "How to Sabotage your Treatment."
--- NOTE | 2016-12-07 22:56 | NUR ---
Tech note: Client walked a mile for rec, did guided meditation and attended an onsite AA meeting. SE; 30 days
--- NOTE | 2016-12-08 04:21 | NUR ---
Education: 1 Hour. Client attended presentation by staff on "Step 1."
--- NOTE | 2016-12-08 05:13 | NUR ---
Bed note: Client was in bed with eyes closed and in no apparent distress at all bed checks.
--- NOTE | 2016-12-08 09:38 | NUR ---
Tech notes: Client is working on Addiction love.
--- NOTE | 2016-12-08 11:56 | NUR ---
Group 1.5 hr Ratio 1:7/Topics today were orientating two new clients to group rules and goals, a good bye letter to an addiction and being able to say no. Client shared a goodbye letter to his addiction and did a good job with it. Client thinks he is more serious with his tx this time around.
--- NOTE | 2016-12-08 13:30 | NUR ---
Education note: Client attend educational speaker Sarina Encinas
--- NOTE | 2016-12-08 16:29 | NUR ---
SPIRITUAL EDUCATION 1 HR. Newcomers were oriented to group. Todays topic was addicted self vs spiritual self which we discussed first then they depicted the contrast in artwork. The ones that finished first wrote letters to welcome anonymous newcomers.
--- NOTE | 2016-12-08 22:26 | NUR ---
Tech note : Client played catch phrase for rec and attended an onsite NA meeting. SE; Graduating treatment
--- NOTE | 2016-12-09 04:41 | NUR ---
Bed note: client was in bed with eyes closed and no distress at all bed checks.
--- NOTE | 2016-12-09 10:29 | NUR ---
DISCHARGE NOTE Client completed treatment and left the facility, taking all personal belongings with him. Discharge instructions were reviewed and a signed copy was provided to the client. Client left the facility with a payable representative from a intermediate house.
--- NOTE | 2016-12-20 10:09 | HP ---
ADMIT: 11/11/2016 RM/LOC: [facility] MR#: [id number] [address] [place], [place] [id number] JOSE MURGUIA [address] [place] [address] History and Physical SEX: M AGE: 51 : 1965 Corrected: 12/14/2016 0728 djs DATE OF SERVICE: 11/11/2016 CHIEF COMPLAINT: Drug problem, recent relapse. CLINICAL HISTORY: The patient is a 51-year-old, white male, admitted to the residential care program for treatment of his methamphetamine use disorder, cannabis use disorder, and alcohol use disorder. The patient readily admits that he is a drug addict and notes that this is a 9th or 10th time that he is in treatment, this is his 5th time in treatment at the [facility]. Most recently, he has been here at the treatment program from 03/10/2016 through 04/06/2016. He completed treatment at that time and then went to the [facility]. The patient notes that he was sober for 6 months while residing at the [facility], but within a week of leaving the [facility], he relapsed in August of 2016 and has been using meth heavily for the last 2-1/2 to 3 months. Other treatment stays at the [facility] were in May of 2015. He was in treatment from 06/09/2015 through 07/02/2015. The patient notes after getting out of treatment at that time, he went to his girlfriend's house and was sober for about a month before he relapsed. He also had been in treatment here in June of 2008 completing treatment on 07/15/2008 once again having only 1 week of sobriety following that treatment. He has been to multiple other treatment programs including one stay at the [facility] program in [place] as well as treatment programs in both [facility]. The patient notes he has never been able to maintain long-term sobriety. He notes that he relapsed in August of 2016, has been using heavily. His girlfriend has thrown him out. He is bit essentially living on the streets. He is homeless. He states that he has lost everything. The patient notes that he was depressed and was getting suicidal and so approximately 10 days ago [facility]. When he verbalized his suicidal thoughts there, he was then transferred to [facility] and was evaluated on a 3-day EPC. He was released from [facility], went back to [facility], but only stayed for 1 day. He left and went out and got high again. Some of his friends from then found him and took him back to the [facility]. He has been at the [facility] for the last 4 to 5 days for detox. He comes to treatment now voluntarily stating that he knows he needs to get clean and sober or feels that he is going to . As noted, he has lost everything including his home, his girlfriend, and all relationship with his family. He notes that he was even high and missed his daughter's wedding. He notes his drug of choice is methamphetamine. He first started using meth at age 18. In first time of use, he used IV and has been an IV user now for over 30 years. Recently, he has been using a half to a gram a day. He notes in the past he used to use 1 to 2 eight balls a week. He notes since he started using meth heavily, he has had little desire to drink or use pot. He notes that marijuana is his second drug of choice. He first started using pot at 12 years of age with his brother and friends. He notes in high school he would smoke 2 to 4 joints a day and was a daily user throughout most of his teen years. The patient has continued to use marijuana on a limited basis. When he is smoking pot, he will smoke 3 to 4 joints a day, but notes that if he has money to spend, he is not going to waste it on ADMIT: 11/11/2016 RM/LOC: [facility] MR#: [id number] [address] [place] [address] [address] [place], [place] [address] JOSE MURGUIA [address] [place] [address] History and Physical SEX: M AGE: 51 : 1965 marijuana, he will spend it on meth. His 3rd drug of choice is alcohol. He notes that his 1st drink when he was age 7 or 8. He notes his parents would give him alcohol. He started binge drinking in high school drinking up to a 12 pack of beer per day on weekends. He notes from age 19 to 22, he was drinking daily to intoxication. His heaviest drinking was in his early 30s. He notes now that he rarely drinks, will occasionally have a beer, but notes when he was using meth, he has no desire to drink. He has no history of alcohol withdrawal or seizures. No previous history of DTs. Fourth drug of choice is narcotics. He notes that in the past he has abused prescription opiates on a limited basis. He notes he may use prescription opiates such as hydrocodone or Percocet 1 to 4 times a year typically less than 40 mg a day whatever narcotic he happens to get a hold of. He has experimented with numerous other drugs, notes he used acid at least 20 times and mushrooms 3 times. When he was younger, he tried cocaine for a brief period of time. As noted, he has been in treatment multiple times at least 9 or 10 times. His longest period of sobriety was following his last treatment when he was able to go 6 months while he was at the [facility]. As noted, he comes to treatment voluntarily feeling like he hit bottom at this time. PAST MEDICAL HISTORY: RECENT HOSPITALIZATIONS: Other than for his admissions to the [facility], he has had no other recent admissions. As noted, he was here in February of 2016 being discharged on 04/06/2016, May 2015, being discharged on July 02, 2015, June of 2008 with discharge in July of 2008. He has had one other admission prior to that here at the [facility] and 4 or 5 other admissions to other programs. He has had no medical admissions. PREVIOUS OPERATIONS: None. CURRENT MEDICATIONS: His only current medication is Wellbutrin XL 150 mg, this was started while he was at [facility]. At the time of his discharge from his last admission, he notes he is on Lamictal and trazodone. He also has been on Seroquel in the past, but he felt Lamictal and trazodone worked well to stabilize his mood while he was at the [facility]. ALLERGIES: No known allergies. MEDICAL ILLNESSES: The patient is noted to have a history of COPD, has been a heavy smoker his entire adult life. He has had significant respiratory issues including chronic cough and marked dyspnea on exertion while at [facility] was doing nebulizer treatments 3 to 4 times a day. He has used an inhaler in the past as well. He also has a history of chronic hepatitis C related to his long-term IV drug use. He admits to used to share needles when he was younger. He has never been treated for his hep C, has been told that he has chronic liver damage due to his hepatitis C. REVIEW OF SYSTEMS: CONSTITUTIONAL: No fever. No chills. No recent weight loss. HEENT: No complaints at this time. ADMIT: 11/11/2016 RM/LOC: [facility] MR#: [id number] [address] [facility] [address] [place] [id number] JOSE MURGUIA [address] [place] [address] History and Physical SEX: M AGE: 51 : 1965 PULMONARY: He is a smoker, typically smokes about a pack a day, complains of shortness of breath, dyspnea on exertion, and chronic cough. CARDIAC: No history chest pain or any coronary artery disease. GASTROINTESTINAL: Does get frequent heartburn and dyspepsia, indigestion on a regular basis. When drinking heavily, he has increased dyspepsia. He has had no melena or hematochezia. Does have history of chronic hep C with possible liver damage. GENITOURINARY: No voiding symptoms. MUSCULOSKELETAL: Some generalized arthritic complaints. NEUROLOGIC: No focal symptoms. No history of strokes seizures or TIAs. ENDOCRINE: No history of diabetes. HEMATOLOGIC: No history of blood clots or clotting disorders. SOCIAL HISTORY: The patient is a 51-year-old, unemployed male. He is a pack- a-day smoker. He has not worked since he got out of the [employer]. The patient is currently homeless. FAMILY HISTORY: There is a history of coronary artery disease with one of his brothers having early-onset coronary artery disease. His mother had lung cancer. Father had colon cancer. There is history of diabetes with his maternal grandmother. He notes that 2 of his brothers are drug addicts, 2 brothers are alcoholics, 1 other from drug overdose with methamphetamine. He has an uncle, who of alcoholism. Strong history of substance abuse in his family. PHYSICAL EXAMINATION: GENERAL APPEARANCE: The patient is a 51-year-old male, who appears his stated age. He is alert. He is somewhat distracted, seems to be somewhat tremulous, but in no acute distress, very anxious at this time. HEENT: Revealed his pupils to be equal and reactive. No scleral icterus. Extraocular movements are intact. His nose and throat are unremarkable. He has chronic periodontal disease. Teeth are in poor repair. NECK: Supple without any masses. No cervical adenopathy. LUNGS: Noted to have some coarse upper airway rhonchi, a few scattered wheezes. He is diminished in the bases. HEART: Regular rhythm without murmur. ABDOMEN: Obese, soft, and nontender. No masses. Liver does not feel enlarged. No ascites noted. GENITALIA: Normal male. Bilaterally descended testes. No hernias. RECTAL: Not performed. EXTREMITIES: Normal to gross exam. No clubbing or cyanosis. No peripheral edema. NEUROLOGICAL: He is intact with no focal deficit. Balance and gait are normal. Cranial nerves II through XII are grossly intact. MENTAL STATUS EXAMINATION: He is pleasant and cooperative. Affect is somewhat flat and depressed with anxiety. He is somewhat vague with his answers, withdrawn at times. He has no bizarre ideation. No delusions at this time. Does admit to hallucinations. While using meth, admits to ADMIT: 11/11/2016 RM/LOC: [facility] MR#: [id number] [address] [place], [place] [address] JOSE MURGUIA [facility] [address] [place] [address] History and Physical SEX: M AGE: 51 : 1965 feelings of depression, hopelessness, and past suicidal ideation. He appears to be of average intelligence. Memory is somewhat diminished. He has limited insight and poor judgment. ASSESSMENT AT THE TIME OF ADMISSION: 1. Methamphetamine/stimulant use disorder, severe; with history of long-term IV drug use. 2. Cannabis use disorder, severe. 3. Opioid use disorder, moderate. 4. Alcohol use disorder, severe. 5. Tobacco use disorder. 6. Chronic obstructive pulmonary disease. 7. Chronic gastroesophageal reflux disease. 8. Chemical-induced mood disorder. 9. Depression. 10.Bipolar disorder. 11.Chronic hepatitis C. 12.High risk for blood-borne pathogens due to long-term IV drug use. PLAN: Plan is to admit the patient to the residential care program with a tentative discharge date of 12/10/2016. Upon completion of treatment, the patient [facility] a [facility], recognizes that he will need the supportive and structured environment of a [facility] to help maintain long- term sobriety. While in the treatment program, we are going to continue his Wellbutrin XL 150 mg daily. Also, we will start back on Lamictal 50 mg daily and trazodone 100 mg at bedtime to help for his mood disorder and depressive symptoms. He will need long-term mental health care counseling following treatment as well. Nick Jesus MD/ ana JOB #: [id number] CC: Nick Jesus, Attending Physician FAMILY PHYSICIAN, Family Physician Corrected: 12/14/2016 0728 djs
--- NOTE | 2017-01-16 16:59 | DS ---
ADMIT: 11/11/2016 RM/LOC: [facility] MR#: [id number] [address] [place], [place] [id number] [address] [place] [id number] General Discharge Summary SEX: M AGE: 51 : 1965 ADMISSION DATE: 11/11/2016 DISCHARGE DATE: 12/09/2016 ADMITTING DIAGNOSIS: As per history and physical. FINAL DIAGNOSES: 1. Methamphetamine/stimulant use disorder, severe. 2. Cannabis use disorder, severe. 3. Opioid use disorder, moderate. 4. Alcohol use disorder, severe. 5. Tobacco use disorder. 6. Chronic obstructive pulmonary disease. 7. Chronic gastroesophageal reflux disease. 8. Chemical-induced mood disorder. 9. Depressive disorder, not otherwise specified. 10.Bipolar disorder. 11.Chronic hepatitis C. 12.High risk for blood-borne pathogens due to long-term IV drug use. COMPLICATIONS: None. OPERATIONS: None. CLINICAL HISTORY: The patient is a 51-year-old, white male, admitted to the residential care program for treatment of his methamphetamine use disorder, cannabis use disorder, opioid use disorder, and alcohol use disorder. The patient readily admits that he is a drug addict noting that this is his 9th or 10th time in treatment. This is his 5th time in treatment here at the [facility]. For details of his pattern of usage and problems associated with his ongoing substance abuse and chemical dependency, please see the clinical history portion of the dictated history and physical. Please also see dictated history and physical for pertinent findings on physical exam, as well as pertinent past medical history. LABORATORY AND X-RAY SUMMARY FROM THIS ADMISSION: None performed at this time. HOSPITAL COURSE: The patient was admitted to the residential care program and assigned to his primary counselor, Sepideh Yu. He remained in the treatment program from 11/11/2016 through 12/09/2016. While in treatment, he participated in individual therapy and group therapy. He was also given the educational series on substance abuse and worked on many of these assignments. He did attend the family education and family group sessions. His daughter also attended those family sessions with them. While in treatment, he was accepting of his substance abuse problem and worked well with the staff in both individual and group settings. He was able to complete step 1 of AA during this level of care. While in treatment, he was able to successfully complete his residential treatment goals. He was able to accept and recognize his powerlessness over alcohol and drugs. He was able to resolve several ADMIT: 11/11/2016 RM/LOC: [facility] MR#: [id number] [address] [facility] [address] [place] [id number] [facility] [address] [address] [place] [id number] General Discharge Summary SEX: M AGE: 51 : 1965 relationship issues resulting his relationship with his current significant other. The patient did do some EMDR therapy to work on past trauma as well as to work on his past relationship with his father and stepfather. He did work on relapse prevention and was also thought that he would benefit from continued EMDR to work on relapse triggers. He did attend the family sessions primarily alone, although his daughter did attend on one occasion. He worked well with the staff as noted in both individual and group settings and had a positive attitude towards treatment. He ultimately completed his residential treatment goals even though during the first 2 weeks of treatment, his emotions were like a roller coaster ride as he focused and accepts on his significant other. He ultimately did gain insight into how toxic that relationship was to him and how it was a significant relapse trigger. As noted, he ultimately completed his residential treatment goals and was felt to be ready for the next level of care. He was referred to the [facility] and was admitted there on his day of discharge. He is to reside at the [facility] for 6 to 9 months until dismissed with staff approval. He should attend AA or NA meetings 4 to 7 days a week and maintain daily contact with an AA or NA sponsor. He should work a strong program of recovery and follow through on all recommendations at the [facility]. CONDITION AT DISCHARGE: Improved. PROGNOSIS: Somewhat guarded. DISCHARGE MEDICATIONS: His medications at dismissal were to include: 1. Wellbutrin XL 150 mg 2 tablets once daily. 2. Lamictal 100 mg daily. 3. Protonix 40 mg daily. 4. Multivitamin 1 daily. 5. Thiamine 100 mg daily. 6. Trazodone 150 mg daily. 7. Dulera 200/5 two puffs b.i.d. 8. Proventil metered dose inhaler 2 puffs every 3 to 4 hours p.r.n. shortness of breath. He was encouraged to stop smoking. As noted, condition on discharge improved. Prognosis guarded. Nick Jesus MD/ ana JOB #: [id number] CC: Nick Jesus MD, Attending Physician NO FAMILY PHYSICIAN, Family Physician
== END 2016-12-09 10:39 | disposition home or self-care (01) | DRG 895 ==
LOC: ADTC 14:13
PROVIDERS: ADMIT Family Medicine
PROC: HZ34ZZZ Individual Counseling for Substance Abuse Treatment, Interpersonal (ICD-10-PCS; principal; 2016-11-11)
PROC: HZ43ZZZ Group Counseling for Substance Abuse Treatment, 12-Step (ICD-10-PCS; principal; 2016-11-11)
PROC: HZ63ZZZ Family Counseling for Substance Abuse Treatment (ICD-10-PCS; principal; 2016-11-11)
DX: F15.20 Other stimulant dependence, uncomplicated (principal); F19.24 Other psychoactive substance dependence with psychoactive substance-induced mood disorder; F11.20 Opioid dependence, uncomplicated; F12.20 Cannabis dependence, uncomplicated; F10.20 Alcohol dependence, uncomplicated; J44.9 Chronic obstructive pulmonary disease, unspecified; F17.210 Nicotine dependence, cigarettes, uncomplicated; K21.9 Gastro-esophageal reflux disease without esophagitis; F31.9 Bipolar disorder, unspecified; B18.2 Chronic viral hepatitis C; Z72.89 Other problems related to lifestyle; Z63.72 Alcoholism and drug addiction in family; Z56.0 Unemployment, unspecified; Z59.0 Homelessness